=== PATIENT | male | born 1985 ===

== ENCOUNTER → 2021-03-21 | Day surgery (SDC) | payer OTHER ==
[~2021-03-21] VITALS: Ht 182.9 cm; Wt 129.3 kg
[~2021-03-21] MED LIST: MOTRIN600 MG PO
[2021-03-21 10:37] LABS: INR 1.02 (0.9-1.2); PROTHROMBIN TIME 12.8 SECONDS (11.8-13.4); PTT 21.8 SECONDS (24.4-34.7)
[2021-03-21 11:51] LABS: BASOPHIL 0.7 % (0-2); EOSINOPHIL 1.4 % (0-5); HCT 47.1 % (42.0-52.0); HGB 15.4 g/dl (13.2-18.0); LYMPHOCYTE 15.8 % (15-48); MCH 31.1 pg (25.0-31.0); MCHC 32.7 g/dL (32.0-36.0); MCV 95.2 fL (78.0-100.0); MONOCYTE 4.4 % (0-12); MPV 11.1 fL (6.0-9.5); NEUTROPHIL 77.2 % (41-80); NRBC 0; RBC 4.95 M/uL (4.70-6.00); RDW 13.2 % (11.5-14.0); WBC 5.6 K/uL (4.0-10.5)
[2021-03-21 12:00] LABS: PLT 119 K/uL (150-400)
== END | disposition home or self-care (01) ==
LOC: FAS 08:45 → EDSEX 11:15
PROVIDERS: Oral & Maxillofacial Surgery
DX: K02.9 Dental caries, unspecified (principal); K04.7 Periapical abscess without sinus; G89.29 Other chronic pain; M54.9 Dorsalgia, unspecified
CPT/HCPCS: D7140; D7210; 36415; 85025; 85610; 85730; J1100; J2250; J2405; J2704; J7120